=== PATIENT | female | born 1965 | race Two or more races ===

== ENCOUNTER 2022-06-17 11:09 | Emergency (ER) | payer MEDICAID ==
[~2022-06-17] VITALS: Ht 157.5 cm; Wt 68.4 kg
[2022-06-17 11:52] LABS: Urine Bacteria NONE SEEN /hpf (None Seen); Urine Blood Negative /uL (Negative); Urine Specific Gravity 1.023 (1.001-1.035); Urine WBC 8 /hpf (0 - 5)
[2022-06-17 11:54] VITALS: BP 137/91
[2022-06-17] MEDS ORDERED: LISINOPRIL 20 MG TAB PO ONE (12:00)
[2022-06-17] MEDS ORDERED: ACET-1080 PO (12:02)
[2022-06-17] MEDS ORDERED: LISI40TA11 PO (12:02)
[2022-06-17] MEDS ORDERED: BACDST PO (12:02)
== END 2022-06-17 12:16 | disposition home or self-care (01) ==
LOC: ER 11:09
DX: I10 Essential (primary) hypertension (principal); N30.00 Acute cystitis without hematuria; Z91.199 Patient's noncompliance with other medical treatment and regimen due to unspecified reason
CPT/HCPCS: 81001; 93005